=== PATIENT | male | born 1995 | race African-American/Black ===

== ENCOUNTER 2025-01-11 17:43 | Emergency (ER) | payer MEDICAID ==
[~2025-01-11] VITALS: Ht 182.9 cm; Wt 100.0 kg
[2025-01-11 17:50] VITALS: BP 134/77; PULSE 88; RESP 12; TEMP 37.2; O2SAT 97
== END 2025-01-11 18:30 | disposition home or self-care (01) ==
LOC: ER 17:43
DX: R45.851 Suicidal ideations (principal)
CPT/HCPCS: 99283